=== PATIENT | female | born 1960 | race Caucasian/White ===

== ENCOUNTER 2018-06-09 07:42 | Day surgery (SDC) | payer OTHER ==
[2018-06-09] MEDS ORDERED: SCOPOLAMINE HYDROBROMIDE 1.5MG/72HR PATCH TD ONE ×2 (08:01→08:48)
[2018-06-09] MEDS ORDERED: ENOXAPARIN SODIUM 40 MG/0.4 ML DISP.SYRIN SQ ONE (08:01)
[2018-06-09] MEDS ORDERED: LACTATED RINGERS 1,000 ML IV ONE (08:02)
[2018-06-09] MEDS ORDERED: FAMOTIDINE/PF 20 MG/2 ML VIAL ONE ×2 (08:20→08:48)
[2018-06-09] MEDS ORDERED: PROPOFOL 200 MG/20 ML VIAL IV ONE (08:48)
[2018-06-09] MEDS ORDERED: KETOROLAC TROMETHAMINE 30 MG/1ML VIAL ONE (08:48)
[2018-06-09] MEDS ORDERED: ACETAMINOPHEN 1,000 MG/100 ML INJ IV ONE (08:48)
[2018-06-09] MEDS ORDERED: DEXAMETHASONE SOD PHOS 4 MG/ML VIAL ONE (08:48)
[2018-06-09] MEDS ORDERED: ePHEDrine SULFATE 50 MG/1 ML IVP ONE (08:48)
[2018-06-09] MEDS ORDERED: CLINDAMYCIN PHOSPHATE 900 MG/6 ML VIAL ONE (08:48)
[2018-06-09] MEDS ORDERED: LACTATED RINGERS 1,000 ML IV.SOLN IV ONE (08:48)
[2018-06-09] MEDS ORDERED: ONDANSETRON HCL/PF 4 MG/ 2ML VIAL ONE (08:48)
[2018-06-09] MEDS ORDERED: SUGAMMADEX 200 mg/2mL ML VIAL IV ONE (08:48)
[2018-06-09] MEDS ORDERED: MIDAZOLAM HCL 2 MG/2 ML VIAL ONE (08:48)
[2018-06-09] MEDS ORDERED: ROCURONIUM BROMIDE 10 MG/ML 5ML VIAL ONE (08:48)
[2018-06-09] MEDS ORDERED: fentaNYL CITRATE/PF 100 MCG/ 2ML AMP ONE ×2 (08:48→12:31)
[2018-06-09] MEDS ORDERED: SEVOFLURANE 250 ML LIQUID IH ONE (08:48)
[2018-06-09] MEDS ORDERED: LIDOCAINE HCL 2% PF 100MG/5ML VIAL IJ ONE (08:48)
[2018-06-09] MEDS ORDERED: FENTANYL 250MCG/5ML VIAL ONE (08:48)
[2018-06-09] MEDS ORDERED: PROMETHAZINE HCL 25 MG/ML VIAL ONE (13:06)
[2018-06-10 08:22] VITALS: BP 113/58
== END 2018-06-09 13:39 | disposition other institution (70) ==
LOC: OPSURG 07:42
PROVIDERS: ATTEND Surgery
DX: E66.01 Morbid (severe) obesity due to excess calories (principal); Z68.43 Body mass index [BMI] 50.0-59.9, adult; G47.30 Sleep apnea, unspecified; I10 Essential (primary) hypertension; M19.90 Unspecified osteoarthritis, unspecified site
CPT/HCPCS: 43235; 43775; 88305; A9270; J1100; J1650; J1885; J2001; J2250; J2405; J2550; J2704; J3010; J7120; S0028

== ENCOUNTER 2018-06-09 13:41 | Inpatient (IN) | payer OTHER ==
[2018-06-09] MEDS ORDERED: PROMETHAZINE HCL 25 MG in 0.9 % SODIUM CHLORIDE 50 ML IV PRN (13:44)
[2018-06-09] MEDS ORDERED: LEVALBUTEROL HCL 1.25 MG/3 ML AMPUL.NEB NEB PRN (13:44)
[2018-06-09] MEDS ORDERED: HYDROCODON-ACETAMIN 7.5-325/15ML SOLN UD CUP PO PRN (13:44)
[2018-06-09] MEDS ORDERED: fentaNYL CITRATE/PF 100 MCG/ 2ML AMP IVP PRN (13:44)
[2018-06-09] MEDS ORDERED: ENOXAPARIN SODIUM 40 MG/0.4 ML DISP.SYRIN SQ SCH (14:00)
--- NOTE | 2018-06-09 14:09 | History and Physical Report ---
History of Present Illnes - History of Present Illness Reason for Visit: S/P Gastric Sleeve History of Present Illness: Patient is a 57-year-old white female who has tried multiple diets and exercise programs with no success. Patient states that she has always been overweight since she was a young adult- got heavier after having children. Patient and surgeon decided to proceed with gastric sleeve procedure. Procedure went well without complications- patient will be admitted and monitored s/p surgical intervention. - Past Medical History Cardiac: HTN Pulmonary: Sleep Apnea (with CPAP) Gastrointestinal: GERD Heme/Onc: Iron deficiency anemia Psych: Anxiety, Depression Musculoskeletal: Chronic low back pain, Osteoarthritis (hips, ankles, feet) Infectious Disease: denies: HIV Endocrine: obesity Grav: 3 Para: 2 Ab: 1 - Past Surgical History Past Surgical History: Other (angiogram ) - Past Family History Mother Family History: father Family History: - Past Social History Smoke: No Alcohol: None Drugs: None Lives: With Family Domestic Violence: Negative - Health Maintenance Health Maintenance: Colonoscopy (2013) Influenza Vaccine: No Pneumonia Vaccine: No Resuscitation Status: Resusciation Status Resuscitation Status Full Code - Unable to Obtain History Unable to Obtain: No Review of Systems - Review of Systems Constitutional: Weakness Eyes: negative: pain ENT: negative: Ear Pain, Throat Pain Respiratory: SOB with Excertion (d/t weight). negative: Shortness of Breath Cardiovascular: negative: Chest Pain, Light Headedness Gastrointestinal: Nausea, Abdominal Pain (s/p gastric sleeve). negative: Vomiting Genitourinary: negative: Dysuria Musculoskeletal: Back Pain Skin: negative: Rash Neurological: Weakness - Medications/Allergies Allergies/Adverse Reactions: Allergies Allergy/AdvReac Type Severity Reaction Status Date / Time ampicillin Allergy Verified 06/09/18 13:42 Penicillins Allergy Verified 06/09/18 13:42 Current Inpatient Medications: Current Inpatient Medications Clindamycin Phosphate (Clindamycin-D5w 600 Mg/50 Ml) 600 mg IV Q8 JAY Stop: 06/09/18 21:01 Enoxaparin Sodium (Lovenox) 40 mg SQ QD JAY Stop: 06/24/18 13:59 Famotidine (Pepcid) 20 mg IVP BID JAY Stop: 06/13/18 20:59 Fentanyl Citrate () 100 mcg IVP Q2H PRN PRN Reason: Severe Pain Stop: 06/13/18 13:43 Promethazine HCl 25 mg/ Sodium (Chloride) 51 mls @ 600 mls/hr IV Q6 PRN PRN Reason: Nausea / Vomiting Stop: 06/13/18 13:43 Sodium Chloride (Normal Saline) 1,000 mls @ 150 mls/hr IV Q8H JAY Ketorolac Tromethamine (Toradol) 30 mg IVP Q6 PRN PRN Reason: For Mild Pain Stop: 06/13/18 13:43 Levalbuterol HCl (Xopenex) 1.25 mg NEB Q4 PRN PRN Reason: SOA, Dyspnea, or Wheezing Stop: 06/13/18 13:43 Ondansetron HCl (Zofran 4 Mg/2 Ml) 4 mg IVP Q6H PRN PRN Reason: Nausea / Vomiting Stop: 06/13/18 13:43 Exam - Exam General: Alert, Oriented to Person, Oriented to Place, Oriented to Time, Cooperative, Mild distress, Morbidly Obese HEENT: Atraumatic, PERRLA, Mouth Mucous membr. moist/[place], Nose Mucous membr. moist/[place] Neck: Normal Range of Motion Carotids: no bruit Lungs: Clear to auscultation, Normal air movement, Speaks full Sentences Cardiovascular: Regular rate, Normal S1, Normal S2 Abdomen: Decreased Bowel Sounds Female Genitourinary: Other (pt has been having some vag. 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) Integumentary: Normal, [place], Warm, Dry, Other (incision site dressings are dry and intact) Extremities: Normal pulses, No tenderness/swelling Neurological: Normal gait, Normal speech, Strength Equal Bilat, Sensation intact Psych/Mental Status: Mental status NL, Mood NL, Appropriate Affect Assessment/Plan - Assessment/Plan (1) S/P gastric surgery Status: Acute Current Visit: Yes Assessment: Incisions are without redness/erythema, legs are without tenderness/pain, LCTA Plan: Will monitor incision sites, patient will be placed on Lovenox daily, frequent ambulation and SCDs while in bed, patient will use incentive spirometer to prevent resp. infections, will start PPI, and will give IVFs until patient can tolerate PO (2) Morbid obesity due to excess calories Status: Acute Current Visit: Yes Assessment: S/P gastric sleeve (3) Obstructive sleep apnea Status: Acute Current Visit: Yes Assessment: stable with CPAP Plan: Will wear CPAP (4) Hypertension Status: Acute Current Visit: Yes Qualifiers: Hypertension type: essential hypertension Qualified Code(s): I10 - Essential (primary) hypertension Assessment: Stable on home meds Plan: Will hold meds at this time and monitor BP closely (5) Anxiety Status: Acute Current Visit: Yes Assessment: Stable on home meds (son was killed 2 years ago) Plan: Will hold home meds at this time until patient can tolerate PO (6) GERD (gastroesophageal reflux disease) Status: Acute Current Visit: Yes Qualifiers: Esophagitis presence: without esophagitis Qualified Code(s): K21.9 - Gastro-esophageal reflux disease without esophagitis Assessment: stable on home meds Plan: Will give Pepcid IV BID (7) Anemia Status: Acute Current Visit: Yes Qualifiers: Anemia type: iron deficiency Assessment: Hgb & Hct is stable and taking oral meds Plan: Will monitor closely VTE Assessment - RISK FACTOR SCORE VTE RISK FACTOR SCORES: AGE 40-60 YEARS, OBESITY, MAJOR SURGERY/ANESTHESIA TIME > 1 HOUR (Lovenox daily, frequent ambulation, SCDs while in bed)
[2018-06-09] MEDS: KETOROLAC TROMETHAMINE 30 MG/1ML VIAL IVP PRN ×2 (14:45→21:14)
[2018-06-09] MEDS: ONDANSETRON HCL/PF 4 MG/ 2ML VIAL IVP PRN (14:45)
[2018-06-09] MEDS: 0.9 % SODIUM CHLORIDE 1,000 ML IV SCH ×2 (14:46→21:15)
[2018-06-09 16:17] VITALS: BMI 56.1
[2018-06-09] MEDS: CLINDAMYCIN PHOSPHATE/D5W 600 MG/50 ML PIGGYBACK IV SCH (18:23)
[2018-06-09] MEDS: FAMOTIDINE/PF 20 MG/2 ML VIAL IVP SCH (21:22)
[2018-06-10] MEDS: CLINDAMYCIN PHOSPHATE/D5W 600 MG/50 ML PIGGYBACK IV SCH (02:30)
--- NOTE | 2018-06-10 06:29 | Discharge Summary ---
Discharge Summary - Discharge Sumary History of Present Illness: Patient is a 57-year-old white female who has tried multiple diets and exercise programs with no success. Patient states that she has always been overweight since she was a young adult- got heavier after having children. Patient and surgeon decided to proceed with gastric sleeve procedure. Procedure went well without complications- patient will be admitted and monitored s/p surgical intervention. Condition at Discharge: Stable Home Medications: Ambulatory Orders Medication Instructions Recorded Citalopram Hydrobromide 20 mg PO DAILY 06/09/18 [Citalopram HBr] Ergocalciferol (Vitamin D2) 1 cap PO WEEK 06/09/18 [Vitamin D2] Ferrous Sulfate 325 mg PO BID 06/09/18 Ibuprofen 400 mg PO Q6 PRN 06/09/18 Lisinopril/Hydrochlorothiazide 1 each PO DAILY 06/09/18 [Zestoretic] Omeprazole 20 mg PO DAILY 06/09/18 Consultations this Visit: None Procedures this Visit: Other (s/p gastric sleeve) Allergies/Adverse Reactions: Allergies Allergy/AdvReac Type Severity Reaction Status Date / Time ampicillin Allergy Verified 06/09/18 16:12 Penicillins Allergy Verified 06/09/18 16:12 Discharge Summary: Patient is a 57-year-old white female that underwent the gastric sleeve procedure and has done very well. She has been very cooperative with her care by ambulating frequently, using her incentive spirometer, and wearing her SCDs while in bed. She has been compliant with her diet during hospitalization. She is having minimal discomfort at this time and minimal nausea- she has had a bowel movement and is passing gas and belching. She is aware of discharge instructions and what she can and cannot do post surgical- she is aware of the strict diet she must follow to decrease discomfort and have success after procedure. She has family support and daughter will be taking her home- medications written by surgeon and sent with family. She appears very positive and excited about the future. She is requesting to go home today. Hospital Course: We held blood pressure medication and blood pressures have been stable- she has been cooperative with care and treatment. She will continue to hold BP meds. She received pain and nausea medication as directed. She has done very well. - Final Diagnosis (1) S/P gastric surgery Problems: Incisions are without redness/erythema, legs are without tenderness/pain, LCTA, patient will use incentive spirometer to prevent resp. infections while at home, and frequent ambulation Right or Left: Right (2) Morbid obesity due to excess calories Problems: S/P gastric sleeve Right or Left: Right (3) Obstructive sleep apnea Problems: Stable with CPAP Right or Left: Right (4) Hypertension Problems: Held BP meds- blood pressures are stable Right or Left: Right (5) Anxiety Problems: Stable on home meds Right or Left: Right (6) GERD (gastroesophageal reflux disease) Problems: Stable on home meds Right or Left: Right (7) Anemia Problems: Stable with iron medications at home Right or Left: Right
[2018-06-10] MEDS: ONDANSETRON HCL/PF 4 MG/ 2ML VIAL IVP PRN (06:37)
[2018-06-10] MEDS: KETOROLAC TROMETHAMINE 30 MG/1ML VIAL IVP PRN (06:40)
[2018-06-10] MEDS: 0.9 % SODIUM CHLORIDE 1,000 ML IV SCH (07:44)
[2018-06-10 08:22] VITALS: BP 113/58
[2018-06-10] MEDS: FAMOTIDINE/PF 20 MG/2 ML VIAL IVP SCH (08:33)
[2018-06-10] MEDS ORDERED: [UNRECOGNIZED DRUG - OTHER] IM ONE (08:36)
[2018-06-10] MEDS ORDERED: INFLUENZA VACCINE 60 MCG/0.5 ML IM ONE (08:36)
[2018-06-10] MEDS ORDERED: ENOXAPARIN SODIUM 40 MG/0.4 ML DISP.SYRIN SQ SCH (14:00)
== END 2018-06-10 09:05 | disposition home or self-care (01) | DRG 641 ==
LOC: SOUTH 13:41
PROVIDERS: ADMIT Nurse Practitioner Family; ATTEND Nurse Practitioner Family
DX: E66.01 Morbid (severe) obesity due to excess calories (principal); Z68.43 Body mass index [BMI] 50.0-59.9, adult; G47.33 Obstructive sleep apnea (adult) (pediatric); F41.9 Anxiety disorder, unspecified; I10 Essential (primary) hypertension; K21.9 Gastro-esophageal reflux disease without esophagitis
CPT/HCPCS: 99231; 99238; J1885; J2405; S0028; J7030